=== PATIENT | female | born 1955 | race Caucasian/White ===

== ENCOUNTER → 2016-11-02 | Outpatient (CLI) | payer MEDICAID ==
[~2016-11-02] MED LIST: ACTOPLUS MET 851 TAB PO; ALDACTONE 25MG25 MG NG; AMOXICILLIN/CLA1 TA1 PO; ASPIR 8181 MG PO; ATORVASTATIN CA20 MG PO; AUGMENTIN 875-1 EACH PO; AZITHROMYCIN250 MG PO; BACTRIM DS 8001 TA1 PO; BACTRIM DS 8001 TAB PO; BENZONATATE100 M1 PO; BENZONATATE200 MG PO; CIPROFLOXACIN500 MG PO; CITALOPRAM20 MG PO; CLONAZEPAM 1MG T1 MG PO; CLONAZEPAM0.5 M3 PO; COMBIVENT1 AR1 IH; FLEXERIL10 MG PO; GABAPENTIN 400400 M1 PO; GABAPENTIN100 M1; GABAPENTIN800 MG PO; HCTZ PO; HYDROCODONE1 TABLET PO; HYDROXYZINE HCL25 MG PO; INSULIN GL100 UNITS/ SC; INSULIN SC; ISOSORBIDE MONO30 MG PO; Isosorbide Mono60 MG PO; JANUVIA100 MG PO; JANUVIA50 MG; JANUVIA50 MG PO; K-DUR 20MEQ TA20 MEQ PO; KEFLEX 250MG.250 MG PO; KEFLEX 500MG.500 MG PO; KLOR-CON M2020 MEQ PO; LAMICTAL150 MG PO; LASIX 20MG. TAB20 MG PO; LASIX20 MG PO; LEVAQUIN 750 M750 MG PO; LEVAQUIN500 MG PO; LEVEMIR100 U/M1 SC; LISINOPRIL AND1 TA1 PO; LORTAB 5/500 501 TAB PO; MACROBID 100MG100 M1 PO; MEDROL 4MG. DOSE4 MG PO; METFORMIN 500M500 MG PO; MIRALAX(PO17 GM/1 PA PO; MUCINEX D 12001 TER PO; NAPROSYN 500MG500 MG PO; NEURONTIN800 MG PO; NICODERM C21 MG/24 H TD; NICOTINE PATCH;21 MG TD; OMEPRAZOLE40 MG PO; OMNICEF 300 MG300 MG PO; OXYGEN3 XX; PAROXETINE HCL40 MG PO; PERCOCET 5/3251 EACH PO; PIOGLITAZONE HC1 TA1 PO; PIOGLITAZONE HC30 MG PO; PREDNISONE 20MG20 MG PO; PREDNISONE 5MG.5 MG PO; PREDNISONE20 MG PO; PREMARIN 0.60.625 MG PO; PREMARIN0.625 MG PO; PRILOSEC OTC20 MG PO; PRILOSEC20 MG PO; PYRIDIUM 200MG200 MG PO; QUETIAPINE FUMA25 MG; REQUIP2 MG PO; SEROQUEL50 MG PO; SINGULAIR 10 MG10 MG PO; STERAPRED DS10 MG PO; SYMBICORT1 AE1 IH; SYMBICORT1 AER IH; TESSALON PERLE100 M1 PO; TESSALON PERLE100 MG PO; TRAZADONE HYDR100 MG PO; TUDORZA PR400 MCG/Ac IH; VENTOLIN H0.09 MG/AC IH; VENTOLIN H0.09 MG/AC IN; VICODIN 5/500 T1 TAB PO; VOLTAREN75 MG PO; ZESTORETIC 12.51 TA1 PO; ZITHROMAX Z PA250 MG PO; ZITHROMAX Z-PA250 M1 PO; [UNRECOGNIZED DRUG - REMARK] SC
[2016-11-02 18:14] LABS: AMPHETAMINES/METAMPHETAMINES NEGATIVE ng/mL (<1000)
[2016-11-10 03:40] LABS: Alprazolam Negative (Cutoff=100); Benzodiazepines Negative ng/mL (Cutoff=100); Clonazepam Negative (Cutoff=100); Flurazepam Negative (Cutoff=100); Lorazepam Negative (Cutoff=100); Midazolam Negative (Cutoff=100); Temazepam Negative (Cutoff=100); Triazolam Negative (Cutoff=100)
== END ==
LOC: LAB 15:52
PROVIDERS: Emergency Medicine
DX: Z79.899 Other long term (current) drug therapy (principal)
CPT/HCPCS: G0480

== ENCOUNTER 2017-01-06 12:13 | Emergency (ER) | payer MEDICAID ==
[~2017-01-06] VITALS: Ht 167.6 cm; Wt 68.0 kg
[~2017-01-06 12:13] MED LIST changes: -KEFLEX 250MG.250 MG PO
[2017-01-06] MEDS ORDERED: KEFLEX 250MG.250 MG PO (13:19)
--- NOTE | 2017-01-06 13:20 | [facility]gent Treatment Center Report ---
History of Present Issue Date/Time Seen by Provider 01/06/17 1245 Visit Reason Pt arrived:Walked Presenting Problem:PT REPORTS SORE RAISED AREA ON R FOOT X3 WEEKS. PT STATES NO KNOWN INJURY/ TRAUMA. PT DENIES ANY FEVER. AREA IS HARD TO THE TOUCH, NO WARMTH NOTED. Location if Accident: Onset of symptoms date/time:/ or onset unknown for:MEDICAL HX UNKNOWN Have you (or family members/close friends) recently traveled outside the [place]? N If Yes, where/when: Have you had exposure to infectious disease within the past month? TB? Other? Specify: Patient states that she is a diabetic, states that she noticed a raised sore callus area on right foot that has been there over three weeks but now looks a little red, States that she is afraid it may be infected, Denies any injury of warmth of area just redness starting around the area and she is a diabetic and worries about foot infection. ALLERGIES Coded Allergies: No Known Allergies (07/09/16) Home Medications Active Scripts Cyclobenzaprine Hcl (Flexeril) 10 MG PO BID #14 TAB Prov: 07/09/16 Spironolactone (Aldactone) 25 MG NG DAILY #7 TAB Prov: 04/30/16 Furosemide (Lasix 20MG) 20 MG PO DAILY #5 TAB Prov: 11/09/15 POTASSIUM CHL (Potassium Chloride) 20 MEQ PO DAILY #5 TAB Prov: 11/09/15 Prednisone (Prednisone 20MG) 20 MG PO BID 5 Days Prov: 09/07/16 Reported Medications ATORVASTATIN CALCIUM (ATORVASTATIN 20MG) 20 MG PO QHS INSULIN GLARGINE (Lantus 3ML Solostar Pen) 30 UNITS SC DAILY ALBUTEROL (Ventolin Hfa) 1-2 PUFF IH Q6H6 Conjugated Estrogens (Premarin 0.625MG) 0.625 MG PO DAILY Isosorbide Mononitrate (Isosorbide Mononitrate ER) 30 MG PO DAILY Hydrochlorothiazide/Lisinopr (Lisinopril 20MG & Hctz 25MG) 1 TAB PO DAILY Gabapentin (Gabapentin 400MG Capsule) 800 MG PO TID Sitagliptin Phosphate (Januvia) 100 MG PO DAILY Omeprazole (Omeprazole 40MG) 40 MG PO DAILY BUDESONIDE/FORMOTEROL FUMARATE (Symbicort 80-4.5 Mcg Inhaler) 1 PUFF IH BID PIOGLITAZONE HCL (Pioglitazone Hcl 30MG Tablet) 15 MG PO BID Clonazepam 0.5 MG PO BID IPRATROPIUM/ALBUTEROL SULFATE (Combivent Inhaler) 1 PUFF IH BID History Medical History General CAD? No Angina: No [place]: No Hypertension? Yes Hyperlipidemia? Yes CHF? No DVT? No PE? No COPD? Yes Asthma? Yes Anemia? No GERD? No Gastric ulcers? No GI Bleed? No Hernia? No Thyroid Problems? No Hypothyroidism? No CVA? No Seizures? No Diabetes? Yes Insulin Dependent: Yes Insulin Pump: No Home FSBS? Yes Renal Insuffiency? No UTI? Yes Stones? No BPH? No GB Disease: No Nephritic Syndrome? No Asplenia? No Hepatitis? No Sickle Cell Disease? No Arthritis? Yes Migraines? No Cataracts? No Glaucoma? No MRSA? No HIV? No TB? No Anxiety? Yes Depression? Yes Cancer? No More? No Immunization HX DT/Tetanus < 1 Year Ago Flu 2015- Flu Season Pneumonia Received In Past Surgical Hx Previous Surgery?Y BILAT KNEE REPLACEMENTS-- X 2 R SHOULDER REPAIR DIEGO LEFT SHOULDER REPLACEMENT STENT PLACEMENT cardiac Family History Family HX Diabetes Yes CAD Yes Hypertension Yes Hyperlipidemia Yes Cancer Yes TB No Social History Smoking Hx Smoker: Current Every Day Smoker Tobacco: Yes Type Cigarettes Packs/day < 1 Pack Alcohol Alcohol: No Review of Systems All Other Systems Reviewed and Negative Comment Raise callus area on right great toe that has been there for about 3 weeks but now is starting to turn red around it Physical Exam Vital Signs Vital Signs Date Time Temp Pulse Resp B/P Pulse O2 O2 Flow FiO2 Ox Delivery Rate 01/06 1237 98.6 92 18 113/59 91 01/06 1229 98.6 92 18 113/59 91 General Appearance normal appearance, WD/WN, no apparent distress, mild distress Respiratory Status Yes: trachea midline, chest symmetrical, non tender chest. No: respiratory distress. 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 Patient had raised dry callus ontop of bunyon like area on right great toe. States that when she wears shoes it rubs the area and irritates it. Patient informed untill healing not to wear tight toe box shoes Medical Decision Making LABS/Meds/Orders Pt receiving controlled substance in ED? No Departure Departure Time of Disposition 1312 Disposition DC Home or Self Care(routine) Clinical Impression Primary Impression: Diabetic foot infection Condition STABLE Referrals Aida MARROQUIN,Dimitrios Martinez (Family) Patient Instructions DI for Diabetic Foot Ulcer Additional Instructions Follow up with Dr. Parra tomorrow for further treatement Avoid tight shoes and bumping of feet on objects Use bunyon pads to help protect the area from further injury Return if needed Take medication as prescribed Discharge Counseling Counseled pt/family regarding diagnosis, medications/RX, home care, follow up needs Prescriptions Current Visit Scripts CEPHALEXIN (Keflex 250MG Capsule) 250 MG PO QID #28 CAP at 1329
[2017-01-06 13:24] VITALS: BP 113/59
== END 2017-01-06 13:24 | disposition home or self-care (01) ==
LOC: ER 12:13 → UTC 12:33 → ER 12:33 → UTC 13:24
DX: L03.115 Cellulitis of right lower limb (principal); E11.9 Type 2 diabetes mellitus without complications; Z79.4 Long term (current) use of insulin